=== PATIENT | male | born 1985 | race Caucasian/White ===

== ENCOUNTER 2019-11-01 10:31 | Emergency (ER) | payer OTHER ==
[2019-11-01 10:54] VITALS: BP 121/60; PULSE 57; TEMP 97.9
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
[2019-11-01 11:32] VITALS: RESP 17
--- NOTE | 2019-11-01 11:59 | XR ---
EXAMINATION TYPE: XR ribs RT w pa chest xray DATE OF EXAM: 11/01/2019 COMPARISON: None HISTORY: Pain TECHNIQUE: 2 view right ribs supplemented with a frontal chest FINDINGS: There is very subtle anterior right sixth rib fracture. Minimal fluid may be within the cos tophrenic angle. No pneumothorax is evident. Lungs are otherwise clear. Heart size is normal. IMPRESSION: 1. Subtle fracture anterior right sixth rib on a single image. The same image some minimal blunting of the right costophrenic angle suggesting underlying fluid may be present.
[2019-11-01] MEDS ORDERED: ACET/COD 300 MG/30 MG STARTER PACK 6 TAB BTL PO STA (12:19)
== END 2019-11-01 12:47 | disposition home or self-care (01) ==
LOC: EC 10:31
DX: S22.31XA Fracture of one rib, right side, initial encounter for closed fracture (principal); F17.200 Nicotine dependence, unspecified, uncomplicated; X58.XXXA Exposure to other specified factors, initial encounter
CPT/HCPCS: 99284

== ENCOUNTER 2021-04-10 00:03 | Emergency (ER) | payer OTHER ==
[2021-04-10 00:11] VITALS: RESP 18
[2021-04-10] MEDS ORDERED: DIPH,PERTUS(ACELL)TETVAC-LF 0.5 ML VIAL IM ONE (00:25)
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
[2021-04-10 01:02] VITALS: BP 108/55; PULSE 83; TEMP 98
== END 2021-04-10 01:01 | disposition home or self-care (01) ==
LOC: EC 00:03
DX: S91.301A Unspecified open wound, right foot, initial encounter (principal); F17.200 Nicotine dependence, unspecified, uncomplicated; F12.90 Cannabis use, unspecified, uncomplicated; W22.8XXA Striking against or struck by other objects, initial encounter
CPT/HCPCS: 90471; 90715; 99283

== ENCOUNTER 2023-03-14 17:46 | Emergency (ER) | payer OTHER ==
[2023-03-14] MEDS ORDERED: ACET/COD 300 MG/30 MG STARTER PACK 6 TAB BTL PO STA (19:58)
[2023-03-14] MEDS ORDERED: AMOXIC-POT CLAV 875MG STARTER PACK 2 TAB BTL PO STA (19:58)
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
[2023-03-14 20:27] VITALS: BP 123/77; PULSE 79; RESP 18; TEMP 98.2
== END 2023-03-14 20:26 | disposition home or self-care (01) ==
LOC: EC 17:46
DX: S62.603A Fracture of unspecified phalanx of left middle finger, initial encounter for closed fracture (principal); F12.90 Cannabis use, unspecified, uncomplicated; F17.200 Nicotine dependence, unspecified, uncomplicated; W54.0XXA Bitten by dog, initial encounter
CPT/HCPCS: 99283